=== PATIENT | female | born 1965 | race Two or more races ===

== ENCOUNTER 2018-07-21 23:26 | Emergency (ER) | payer SELFPAY ==
[~2018-07-21] VITALS: Ht 154.9 cm; Wt 63.5 kg
[2018-07-21] MEDS ORDERED: NKM (23:40)
--- NOTE | 2018-07-21 23:45 | NUR ---
ED Nurse Note: RECIEVED PT ON GURNEY FROM HOME, PT IS CRYING AND GUARDING EYES, HERE FOR BILAT EYES BURNING, PT WAS COOKING HOT CHILIS AND THEY SPLASHED IN HER FACE, PT HAS CHILIS ALL OVER HER TORSO AREA, DENEIS ANY OTHER INJURIES OR COMPLAINTS, IMMEDIATELY ASSISTED WITH RINSING OF EYES.
--- NOTE | 2018-07-22 00:01 | Emergency Room Report ---
History of Present Illness General Chief Complaint: Chemical Exposure Source: Patient, Family Member Present Illness HPI Is a 52-year-old female with no past medical history. She presents with chief complaint of bilateral eye pain. She was in the kitchen getting out of the jar of chili peppers. She dropped it and it splashed on her legs and some of it went into her eyes. She complaining of severe bilateral eye pain. Burning sensation. No nausea no vomiting. No fever chills. Allergies: Coded Allergies: No Known Allergies (Unverified , 07/21/18) Patient History Past Medical History: see triage record, old chart reviewed Past Surgical History: other Pertinent Family History: none Social History: Denies: smoking Last Menstrual Period: 5 yuears ago Now: No Immunizations: other Reviewed Nursing Documentation: PMH: Agreed; PSxH: Agreed Nursing Documentation-PMH Past Medical History: No Stated History Review of Systems Eye: Reports: eye pain; Denies: blurred vision ENT: Denies: ear pain, nose congestion, throat swelling Respiratory: Denies: cough, shortness of breath Cardiovascular: Denies: chest pain, palpitations Gastrointestinal: Denies: abdominal pain, diarrhea, nausea, vomiting Musculoskeletal: Denies: back pain, joint pain Skin: Denies: rash Neurological: Denies: headache, numbness Endocrine: Denies: increased thirst, increased urine Hematologic/Lymphatic: Denies: easy bruising All Other Systems: negative except mentioned in HPI Physical Exam Vital Signs Date Time Temp Pulse Resp B/P (MAP) Pulse Ox O2 Delivery O2 Flow Rate FiO2 07/21/18 23:37 97.3 95 17 196/79 100 Room Air vitals with high blood pressure Sp02 EP Interpretation: reviewed, normal General Appearance: well appearing, no apparent distress, alert Head: normocephalic, atraumatic Eyes: bilateral eye PERRL, bilateral eye EOMI, bilateral eye Scleral Injection ENT: hearing grossly normal, normal pharynx Neck: full range of motion, supple, no meningismus Respiratory: chest non-tender, lungs clear, normal breath sounds Cardiovascular #1: regular rate, rhythm, no murmur Gastrointestinal: normal bowel sounds, non tender, no mass, no organomegaly, no bruit, non-distended Musculoskeletal: back normal, gait/station normal, normal range of motion Psychiatric: mood/affect normal Skin: warm/dry Medical Decision Making Diagnostic Impression: Primary Impression: Chemical conjunctivitis of both eyes ER Course Patient with chemical conjunctivitis of both eyes. No trauma. We'll irrigate out with Bill lens. We will discharge home afterward. Last Vital Signs Date Time Temp Pulse Resp B/P (MAP) Pulse Ox O2 Delivery O2 Flow Rate FiO2 07/21/18 23:37 97.3 95 17 196/79 100 Room Air Status: improved Disposition: HOME, SELF-CARE Condition: Stable Additional Instructions: Follow-up with your doctor in 7 days. Return if symptom worsen. Huang Cross MD Jul 22, 2018 00:01
[2018-07-22 00:35] VITALS: BP 170/86
--- NOTE | 2018-07-22 00:35 | NUR ---
ED Nurse Note: PT COMPLETED NORMAL SALINE RINSES IN BOTH EYES VIA MORGANS LENS, PT TOLERATED WELL, PT STATES MUCH BETTER, PT EYES COMPLETELY OPEN AND CAN SEE, NO VISUAL DEFICITS, PT IS AMBULATORY, BEING D/C TO HOME, GIVEN F/U INFO AND INSTRUCTIONS IN [place], PT WITH NEPHEW TO DRIVE HER, PT VERY THANKFUL AND TEARFUL, RECENTLY LOSS OF 3 DAYS AGO, PT ARMBAND REMOVED, NAD NOTED DURING D/C TO HOME.
--- NOTE | 2018-07-22 00:40 | NUR ---
ED Nurse Note: PT BEING D/C TO HOME, B/P REMAINS SLIGHTLY ELEVATED, MD AWARE AND STATES OK TO DISCHARGE AND SPOKE WITH PT AND FAMILY INFORMING TO FOLLOW UP WITH PRIMARY FOR B/P, PT STATES DOES HAVE PRIMARY MD AND DENIES ANY HTN HISTORY. NO CP.
[2018-07-22 00:45] VITALS: BP 170/86
== END 2018-07-22 00:45 | disposition home or self-care (01) ==
LOC: EMR 07-22 00:35
DX: H10.213 Acute toxic conjunctivitis, bilateral (principal)
CPT/HCPCS: 99283